=== PATIENT | female | born 1995 | race Caucasian/White ===

== ENCOUNTER 2018-11-22 22:00 | Emergency (ER) | payer BC ==
--- NOTE | 2018-11-22 23:32 | EDM.PDOC ---
ED HPI GENERAL MEDICAL PROBLEM - General Chief Complaint: Fever Stated Complaint: HIGH FEVER,ILL Time Seen by Provider: 11/22/18 22:23 Source of Information: Reports: Patient, Family (Mom) History Limitations: Reports: No Limitations - History of Present Illness INITIAL COMMENTS - FREE TEXT/NARRATIVE: chief complaint: sore throat with fever This is a 23 year old female from [place], [place]., here on vacation, develops sore throat with fever. 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 Pain Score (Numeric/FACES): 8 throat Pain Score (Numeric/FACES): 8 - Related Data Allergies Allergy/AdvReac Type Severity Reaction Status Date / Time No Known Allergies Allergy Verified 11/22/18 22:40 Home Meds: Home Meds NK [No Known Home Meds] 11/22/18 [History] Past Medical History - Past Health History Medical/Surgical History: Denies Medical/Surgical History Social & Family History - Family History Family Medical History: Noncontributory - Tobacco Use Smoking Status *Q: Never Smoker - Caffeine Use Caffeine Use: Reports: None - Alcohol Use Days Per Week of Alcohol Use: 0 - Recreational Drug Use Recreational Drug Use: No - Living Situation & Occupation Living situation: Reports: Single, with Family Occupation: Employed ED ROS ENT - Review of Systems Review Of Systems: See Below Constitutional: Reports: Fever, Chills, Malaise, Decreased Appetite HEENT: Reports: Throat Pain, Throat Swelling Respiratory: Reports: No Symptoms Cardiovascular: Reports: No Symptoms Endocrine: Reports: No Symptoms GI/Abdominal: Reports: No Symptoms : Reports: No Symptoms Musculoskeletal: Reports: No Symptoms Skin: Reports: No Symptoms Neurological: Reports: Headache Psychiatric: Reports: No Symptoms Hematologic/Lymphatic: Reports: No Symptoms Immunologic: Reports: No Symptoms ED EXAM, ENT - Physical Exam Exam: See Below Exam Limited By: No Limitations General Appearance: Alert, WD/WN, Mild Distress Eye Exam: Bilateral Eye: EOMI, PERRL Ears: Normal External Exam, Normal Canal, Hearing Grossly Normal, Normal TMs Nose: Normal Inspection, Normal Mucousa, No Blood Mouth/Throat: Normal Gums, Normal Lips, Normal Teeth, Tonsillar Erythema, Tonsillar Exudates, Tonsillar Swelling Head: Atraumatic, Normocephalic Neck: Normal Inspection, Supple, Lymphadenopathy (R), Lymphadenopathy (L) Respiratory/Chest: No Respiratory Distress, Lungs Clear, Normal Breath Sounds, No Accessory Muscle Use, Chest Non-Tender Cardiovascular: Normal Peripheral Pulses, Regular Rate, Rhythm, No Murmur GI/Abdominal: Normal Bowel Sounds, Soft, Non-Tender, No Distention Extremities: Normal Inspection, Normal Range of Motion, Non-Tender, No Pedal Edema, Normal Capillary Refill Neurological: No Motor/Sensory Deficits Psychiatric: Normal Affect, Normal Mood Skin: Warm, Dry, Intact, Normal Color, No Rash Lymphatic: Adenopathy (cervical) Course - Vital Signs Last Recorded V/S: Last Vital Signs Temp 37.7 C 11/22/18 22:39 Pulse 114 H 11/22/18 22:39 Resp 19 11/22/18 22:39 BP 116/51 L 11/22/18 22:39 Pulse Ox 95 11/22/18 22:39 - Orders/Labs/Meds Orders: Active Orders 24 hr Category Date Time Status CULTURE STREP A CONFIRMATION [] Stat Lab 11/22/18 22:54 Results STREP SCRN A RAPID W CULT CONF [] Stat Lab 11/22/18 22:54 Results Labs: Laboratory Tests 11/22/18 Range/Units 22:54 Urine Color Yellow Urine Appearance Slightly cloudy Urine pH 5.0 (4.5-8.0) Ur Specific [place] 1.020 (1.008-1.030) Urine Protein 30 H (NEGATIVE) mg/dL Urine Glucose (UA) Normal (NEGATIVE) mg/dL Urine Ketones Negative (NEGATIVE) mg/dL Urine Occult Blood Moderate (NEGATIVE) Urine Nitrite Negative (NEGATIVE) Urine Bilirubin Negative (NEGATIVE) Urine Urobilinogen Normal (NORMAL) mg/dL Ur Leukocyte Esterase Negative (NEGATIVE) Urine RBC 10-20 H (0-5) Urine WBC 0-5 (0-5) Ur Epithelial Cells Many Amorphous Sediment Many Urine Bacteria Not seen Urine Mucus Many - Re-Assessments/Exams Free Text/Narrative Re-Assessment/Exam: 11/22/18 23:38 ua with micro; negative ketones, wbc, leukocytes, rbc Rapid strep negative, throat culture pending. will treat due to the clinical presentation of symptoms\ Piter and Adore agree with plan of care. Departure - Departure Time of Disposition: 23:28 Disposition: Home, Self-Care 01 Condition: Good Clinical Impression: Exudative pharyngitis - Discharge Information *PRESCRIPTION DRUG MONITORING PROGRAM REVIEWED*: Not Applicable *COPY OF PRESCRIPTION DRUG MONITORING REPORT IN PATIENT ELISE: Not Applicable Instructions: Pharyngitis, [id number] Referrals: Daniele Patrick MD [Primary Care Provider] - Forms: ED Department Discharge Care Plan Goals: Exudative Pharyngitis -start Zithromax 500mg po now and then one tablet daily x 4 days -continue over the counter Tylenol and Motrin -push fluids, rest -new tooth brush -avoid sharing foods or drink for 24 hours return to ER if has increased pain, fever, chills, nausea, vomiting, rash or not improved or has any concerns. - Problem List & Annotations (1) Exudative pharyngitis SNOMED Code(s): 336227796 Code(s): J02.9 - ACUTE PHARYNGITIS, UNSPECIFIED Status: Acute Priority: High Current Visit: Yes - Problem List Review Problem List Initiated/Reviewed/Updated: Yes - My Orders Last 24 Hours: My Active Orders 11/22/18 22:54 CULTURE STREP A CONFIRMATION [RM] Stat STREP SCRN A RAPID W CULT CONF [RM] Stat - Assessment/Plan Last 24 Hours: My Active Orders 11/22/18 22:54 CULTURE STREP A CONFIRMATION [RM] Stat STREP SCRN A RAPID W CULT CONF [RM] Stat Plan: Exudative Pharyngitis -start Zithromax 500mg po now and then one tablet daily x 4 days -continue over the counter Tylenol and Motrin -push fluids, rest -new tooth brush -avoid sharing foods or drink for 24 hours return to ER if has increased pain, fever, chills, nausea, vomiting, rash or not improved or has any concerns.
== END 2018-11-22 23:38 | disposition home or self-care (01) ==
LOC: JP.ED 22:00
DX: J02.9 Acute pharyngitis, unspecified (principal)
CPT/HCPCS: 81001; 87081; 87880-QW; 99283